=== PATIENT | male | born 1945 | race Caucasian/White ===

== ENCOUNTER 2016-09-15 11:39 | Emergency (ER) | payer OTHER ==
[~2016-09-15] VITALS: Ht 175.3 cm; Wt 84.1 kg
[~2016-09-15 11:39] MED LIST: [UNRECOGNIZED DRUG - REMARK]
[2016-09-15] MEDS ORDERED: MOTRIN800 MG PO (13:57)
[2016-09-15 14:14] VITALS: BP 178/86
== END 2016-09-15 14:22 | disposition home or self-care (01) ==
LOC: EME 11:39
DX: S60.032A Contusion of left middle finger without damage to nail, initial encounter (principal); W19.XXXA Unspecified fall, initial encounter; Z91.81 History of falling; Z87.891 Personal history of nicotine dependence
CPT/HCPCS: 73130; 99281; 99284